=== PATIENT | female | born 1985 | race Caucasian/White ===

== ENCOUNTER 2017-02-12 20:47 | Emergency (ER) | payer BC, MEDICAID, OTHER ==
[~2017-02-12 20:47] MED LIST: Lidocaine 1% 20 ML MDV INFILT ONE
[2017-02-12 21:16] VITALS: BP 146/106
--- NOTE | 2017-02-13 00:43 | ER ---
DATE SEEN: 02/12/2017 CHIEF COMPLAINT: Laceration. HISTORY OF PRESENT ILLNESS: A 31-year-old female who was playing with her dog and hit upper lip, sustained a laceration that went through. Complains of pain. ALLERGIES: She has no known allergies. PAST MEDICAL HISTORY: Her last tetanus was just recently according to her. PHYSICAL EXAMINATION: GENERAL: She is not in distress. VITAL SIGNS: Her blood pressure is 146/106 and pulse is 108. SKIN: On the right upper side of the upper lip is a 1 cm laceration that crosses the vermilion and also goes through to the inner aspect where there is a 1 cm exit wound as well. IMPRESSION: Laceration, simple. PLAN: I used lidocaine for anesthesia. I put 2 stitches to suture the upper lip of 5-0 Ethilon and then 2 stitches of absorbable Vicryl 5-0 in the inner aspect. There were no complications. The patient was discharged home to have stitches removed in 5 days. /[id number] MOLLY/MALLORY
== END 2017-02-12 21:30 | disposition home or self-care (01) ==
LOC: FB.ED 20:47
DX: S01.511A Laceration without foreign body of lip, initial encounter (principal); W22.8XXA Striking against or struck by other objects, initial encounter
CPT/HCPCS: 12011; 99283; A4217